=== PATIENT | female | born 1960 | race Caucasian/White ===

== ENCOUNTER → 2017-12-08 14:19 | Outpatient (REF) | payer MEDICAID, SELFPAY ==
[2017-12-08 18:10] LABS: Basophils # 0.1 K/mm3 (0-0.2); Basophils % 0.8 % (0.1-2.0); Eosinophils # 0.4 K/mm3 (0.0-0.4); Eosinophils % 3.4 % (0.1-12.0); Hematocrit 38.4 % (37.0-47.0); Hemoglobin 12.4 g/dL (12.2-16.2); Lymphocytes # 4.8 K/mm3 (0.7-4.5); Lymphocytes % 40.6 K/mm3 (10-50); Mean Corpuscular HGB Conc 32.2 g/dL (31.8-35.4); Mean Corpuscular Hemoglobin 30.2 pg (27.0-31.2); Mean Corpuscular Volume 93.5 fl (81-99); Mean Platelet Volume 9.1 fl (7.4-10.4); Monocytes # 0.9 K/mm3 (0.1-1.0); Monocytes % 7.9 % (1.7-9.3); Neutrophils # 5.6 K/mm3 (1.8-7.8); Neutrophils % 47.4 % (37.0-80.0); Platelet Count 291 K/mm3 (142-424); Red Cell Distribution Width 12.8 % (11.5-17.5); White Blood Count 11.8 K/mm3 (4.8-10.8)
[2017-12-08 18:34] LABS: Hemoglobin A1C 6.3 % (0.0-7.0)
[2017-12-08 18:38] LABS: Alanine Aminotransferase 28 U/L (12-78); Albumin Level 3.7 gm/dL (3.4-5.0); Albumin/Globulin Ratio 1.2 (1.1-1.8); Alkaline Phosphatase 116 U/L (46-116); Anion Gap 13.2 mEq/L (5-15); Aspartate Amino Transferase 15 U/L (15-37); Bilirubin,Total 0.1 mg/dL (0.2-1.0); Blood Urea Nitrogen 15 mg/dL (7-18); Calcium 8.9 mg/dL (8.5-10.1); Carbon Dioxide 28 mmol/L (21.0-32.0); Chloride 104 mmol/L (98-107); Chol/HDL Ratio 4.3 (1-3.5); Cholesterol 260 mg/dL (140-200); Creatinine,Serum 0.86 mg/dL (0.55-1.02); Estimated Glomerular Filt Rate 68 ml/min (>60); Free T4 (Free Thyroxine) 0.82 ng/dl (0.76-1.46); GFR (African American) 82 ML/MIN (>60); Globulin 3.1 gm/dl (1.3-3.2); Glucose 169 mg/dL (74-106); HDL Cholesterol 61 mg/dL (29-89); LDL Cholesterol 161 mg/dL (0-130); Potassium 4.2 mmoL/L (3.5-5.1); Sodium 141 mmol/L (136-145); Thyroid Stimulating Hormone 9.58 uIU/ml (0.358-3.740); Total Protein,Serum 6.8 gm/dL (6.4-8.2); Triglycerides 192 mg/dL (30-200); VLDL Cholesterol 38 mg/dL (0-40)
[2017-12-10 19:04] LABS: Vitamin D 25 Hydroxy 20.5 ng/mL (30.0-100.0)
== END ==
LOC: LAB 14:19
PROVIDERS: Visit Provider Nurse Practitioner Family
DX: E03.9 Hypothyroidism, unspecified (principal); R53.83 Other fatigue; Z79.899 Other long term (current) drug therapy
CPT/HCPCS: 80053; 80061; 82652; 83036; 84439; 84443; 85025

== ENCOUNTER → 2018-02-17 14:52 | Outpatient (CLI) | payer MEDICAID, SELFPAY ==
[2018-02-17 18:10] LABS: Thyroid Stimulating Hormone 2.73 uIU/ml (0.358-3.740)
== END ==
PROVIDERS: Visit Provider Nurse Practitioner Family
DX: E03.9 Hypothyroidism, unspecified (principal)
CPT/HCPCS: 36415; 84443

== ENCOUNTER → 2019-08-08 14:51 | Outpatient (CLI) | payer MEDICAID, SELFPAY ==
--- NOTE | 2019-08-08 14:55 | XR_ITS ---
PROCEDURE: XR FOOT LT MIN 3V CLINICAL INDICATION: pain Pain along the plantar surface COMPARISON: No exams were available for comparison FINDINGS: No fracture or dislocation. No lytic or blastic change. There is normal mineralization. The joint spaces are well-preserved. No significant degenerative/arthritic changes. No erosive changes evident. Other findings:None. IMPRESSION: No acute findings. Dictated by: Nikos Graves MD 08/08/2019 17:53 Electronically signed by Nikos Graves MD in [place] 08/08/2019 17:53
== END ==
PROVIDERS: PCP Nurse Practitioner Family; Visit Provider Nurse Practitioner Family
DX: M79.672 Pain in left foot (principal)
CPT/HCPCS: 73630

== ENCOUNTER → 2020-04-10 08:59 | Outpatient (CLI) | payer MEDICAID, SELFPAY ==
--- NOTE | 2020-04-10 08:59 | FL_ITS ---
PROCEDURE: FL BARIUM SWALLOW CLINICAL INDICATION: dyspagia Dysphagia, choking COMPARISON: No exams were available for comparison TECHNIQUE: In the upright position the patient was observed to swallow barium in both the AP and lateral view. The cervical esophagus was examined under fluoroscopy with images obtained. The patient was then placed prone in the right anterior oblique position and was observed to swallow barium with Valsalva technique . FLUOROSCOPY TIME: 1 minutes and 12 seconds FINDINGS: There was no evidence of aspiration. There was normal peristalsis. No filling defects or mucosal abnormalities. No masses or strictures. IMPRESSION: Negative barium swallow. Dictated by: Nikos Graves MD 04/10/2020 18:12 Electronically signed by Nikos Graves MD in [place] 04/10/2020 18:12
== END ==
PROVIDERS: PCP Physician Assistant; Visit Provider Surgery
DX: R13.10 Dysphagia, unspecified (principal)
CPT/HCPCS: 74220

== ENCOUNTER 2020-04-29 15:42 | Inpatient (IN) | payer MEDICAID, SELFPAY ==
[2020-04-29 15:44] VITALS: BP 120/79; PULSE 101; RESP 16; TEMP 36.9; O2SAT 98; BMI 22.6
--- NOTE | 2020-04-29 16:23 | CT_ITS ---
PROCEDURE: CT ABDOMEN PELVIS W CON CLINICAL INDICATION: abd pain Abdominal pain, generalized abdominal with vomiting COMPARISON: No exams were available for comparison TECHNIQUE: IV Contrast: 75ML OPTIRAY 350 Oral Contrast None Axial images obtained with sagittal and coronal reformats. All CT scans at the facility use one or more dose reduction, viz: automated exposure control, ma/kV adjustment per patient size (including targeted exams where dose is matched to indication, i.e. head), or iterative reconstruction technique. FINDINGS: LOWER THORAX: No acute finding ABDOMEN & PELVIS: Decreased attenuation of the liver consistent with hepatic steatosis with more prominent areas of decreased attenuation in the pericaval region and along the junction of the right and left hepatic lobe area consistent with more severe fatty infiltration. The spleen, adrenal glands have an unremarkable appearance. There is a small 6 mm area of decreased attenuation within the central aspect of the pancreas measuring -24 Hounsfield units and may be due to some invagination of peripancreatic fat within the pancreas. Just lateral to this area of decreased attenuation is another area of decreased density measuring 6 mm with a Hounsfield unit measurement 32. MRI of the pancreas with pancreatic protocol may provide further evaluation. No evidence of pancreatitis. There is mild prominence of the renal pelves on both sides. No ureteral calculi. Urinary bladder is somewhat distended. There is a mild amount of retained colonic feces. No evidence of appendicitis. No evidence of diverticulitis. There are post hysterectomy changes. There is a small umbilical hernia containing fat. There is mild lumbar curvature convex left. There is fusion of the right SI joint. IMPRESSION: 1. Distended urinary bladder with mild bilateral hydronephrosis. 2. Nonspecific low-density lesions of the pancreas. One lesion is fat density in the of the lesion is more soft tissue density. There are adjacent to 1 another each measuring 6 mm. Recommend follow-up MRI with pancreatic protocol with MRCP. 3. Fatty liver 4. Other nonacute findings as described above. Dictated by: Nikos Graves MD 04/30/2020 08:02 Electronically signed by Nikos Graves MD in [place] 04/30/2020 08:02
[2020-04-29 16:25] LABS: Microscopic, Urine URINE MICROSCOPIC (MICROSCOPIC)
[2020-04-29 16:27] LABS: Basophils # 0.1 K/mm3 (0-0.2); Basophils % 0.3 % (0.1-2.0); Eosinophils # 0.1 K/mm3 (0.0-0.4); Eosinophils % 0.3 % (0.1-12.0); Hematocrit 36.2 % (37.0-47.0); Hemoglobin 13.4 g/dL (12.2-16.2); Lymphocytes # 4.4 K/mm3 (0.7-4.5); Lymphocytes % 15.9 % (10-50); Mean Corpuscular Hemoglobin 32.1 pg (27.0-31.2); Mean Corpuscular Volume 86.8 fl (81-99); Mean Platelet Volume 8.3 fl (7.4-10.4); Monocytes # 1.8 K/mm3 (0.1-1.0); Monocytes % 6.5 % (1.7-9.3); Neutrophils # 21.1 K/mm3 (1.8-7.8); Platelet Count 367 K/mm3 (142-424); Red Blood Count 4.17 M/mm3 (4.20-5.40); Red Cell Distribution Width 13.5 % (11.5-17.5); White Blood Count 27.5 K/mm3 (4.8-10.8)
--- NOTE | 2020-04-29 16:31 | CT_ITS ---
PROCEDURE: CT HEAD/BRAIN WO CON CLINICAL INDICATION: ams Altered mental status, altered level of consciousness, confusion, disorientation COMPARISON: No exams were available for comparison TECHNIQUE: Axial images obtained. All CT scans at the facility use one or more dose reduction, viz: automated exposure control, ma/kV adjustment per patient size (including targeted exams where dose is matched to indication, i.e. head), or iterative reconstruction technique. FINDINGS: No midline shift, mass effect, intracranial hemorrhage, hydrocephalus, or extra-axial fluid collection is evident. There is generalized atrophy with hypoattenuation of the periventricular white matter consistent with microangiopathic changes. The calvarium has an unremarkable appearance. No mastoid effusion. No sinus air-fluid level. IMPRESSION: No acute intracranial finding Dictated by: Nikos Graves MD 04/30/2020 07:54 Electronically signed by Nikos Graves MD in [place] 04/30/2020 07:54
[2020-04-29 16:32] LABS: Appearance,Urine CLEAR (Clear); Bilirubin,Urine Negative (Negative); Blood, Urine Negative (Negative); Color,Urine YELLOW (Yellow); Glucose,Urine (UA) Negative (Negative); Ketones,Urine Negative (Negative); Leukocyte Esterase,Urine Negative (Negative); Nitrate,Urine Negative (Negative); Protein,Urine Negative (Negative); Urobilinogen,Urine 0.2 EU/dl (0.2)
[2020-04-29 16:34] LABS: Sodium 116 mmol/L (136-145)
[2020-04-29 16:35] LABS: Potassium 3.5 mmoL/L (3.5-5.1)
[2020-04-29 16:37] LABS: Alanine Aminotransferase 56 U/L (12-78); Alkaline Phosphatase 128 U/L (38-126); Anion Gap 18.5 mEq/L (5-15); Aspartate Amino Transferase 59 U/L (14-36); Bilirubin,Total 0.5 mg/dl (0.2-1.3); Blood Urea Nitrogen 4 mg/dl (7-17); Carbon Dioxide 24 mmol/L (22.0-30.0); Creatinine Clearance Estimated 90 mL/min (50-200); Estimated Glomerular Filt Rate 102 ml/min (>60); GFR (African American) 124 ML/MIN (>60)
[2020-04-29 16:38] LABS: Albumin Level 3.8 g/dl (3.5-5.0); Albumin/Globulin Ratio 1.5 (1.1-1.8); Amylase 38 U/L (30-110); Calcium 9.3 mg/dl (8.4-10.2); Globulin 2.5 g/dL (1.3-3.2); Glucose 149 mg/dl (74-100); Lipase 73 U/L (23-300); Total Protein,Serum 6.3 g/dl (6.3-8.2)
--- NOTE | 2020-04-29 16:42 | HMH.EDGENADL ---
ED Disposition Clinical Impression: Hyponatremia, Urinary retention Dementia Qualifiers: Dementia type: unspecified type Dementia behavioral disturbance: without behavioral disturbance Qualified Code(s): F03.90 - Unspecified dementia without behavioral disturbance Constipation Qualifiers: Constipation type: unspecified constipation type Qualified Code(s): K59.00 - Constipation, unspecified Disposition: Admitted As Inpatient Condition on Discharge: Fair - Critical Care Critical Care Time: No Attestation: On 04/29/20, the high probability of a clinically significant, sudden or life threatening deterioration of the following system(s) required my full and direct attention, intervention and personal management. The time I documented below is in addition to time spent performing reported procedures but includes the following listed in this critical care notation. Medical Decision Making - Medical Records Medical records reviewed: Yes: I reviewed the patient's medical records. - Luis Antonio Inquiry Pt receiving controlled substance: No Vital Signs: 04/29/20 15:44 04/29/20 17:17 Temperature 98.5 F Temperature Source Oral Pulse Rate [Left Radial] 101 H 107 H Respiratory Rate 16 Blood Pressure [Right Arm] 120/79 125/74 Blood Pressure Mean [Right Arm] 92 91 Blood Pressure Position [Right Arm] Sitting 02 Sat by Pulse Oximetry 98 Oxygen Delivery Method Room Air - Lab Data Lab Results 04/29/20 15:44: Urine Color Yellow, Urine Appearance Clear, Urine pH 6.0, Ur Specific [place] 1.010, Urine Protein Negative, Urine Glucose (UA) Negative, Urine Ketones Negative, Urine Blood Negative, Urine Nitrate Negative, Urine Bilirubin Negative, Urine Urobilinogen 0.2, Ur Leukocyte Esterase Negative, Urine WBC Occasional, Ur Squamous Epith Cells Occasional, Urine Bacteria Trace 04/29/20 16:15: Amylase 38, Lipase 73 04/29/20 16:15: WBC 27.5 H*, RBC 4.17 L, Hgb 13.4, Hct 36.2 L, MCV 86.8, MCH 32.1 H, MCHC 37.0 H, RDW 13.5, Plt Count 367, MPV 8.3, Neut % (Auto) 77.0, Lymph % (Auto) 15.9, Luce % (Auto) 6.5, Eos % (Auto) 0.3, Baso % (Auto) 0.3, Neut # (Auto) 21.1 H, Lymph # (Auto) 4.4, Luce # (Auto) 1.8 H, Eos # (Auto) 0.1, Baso # (Auto) 0.1, Total Counted 100, Neutrophils % (Manual) 67, Lymphocytes % (Manual) 19, Monocytes % (Manual) 14 H, Platelet Estimate Normal, RBC Morphology Normal 04/29/20 16:15: Sodium 116 L, Potassium 3.5, Chloride 77 L, Carbon Dioxide 24, Anion Gap 18.5 H, BUN 4 L, Creatinine 0.60, Estimated Creat Clear 90, Estimated GFR 102, Est GFR ( Amer) 124, Glucose 149 H, Calcium 9.3, Total Bilirubin 0.5, AST 59 H, ALT 56, Alkaline Phosphatase 128 H, Total Protein 6.3, Albumin 3.8, Globulin 2.5, Albumin/Globulin Ratio 1.5 04/29/20 16:15: Urine Opiates Screen Negative, Urine Methadone Screen Negative, Ur Barbituates Screen Negative, Ur Phencyclidine Scrn Negative, Ur Amphetamines Screen Negative, U Benzodiazepines Scrn Negative, Urine Cocaine Screen Negative, U Marijuana (THC) Screen Negative 04/29/20 16:15: Plasma/Serum Alcohol < 10 04/29/20 16:15: TSH 4.22 04/29/20 18:05: Urine Creatinine 26 Result diagrams: 04/29/20 16:15 04/29/20 16:15 Orders (Tests/Meds): ED MEDICATIONS Generic Name Dose Route Start Last Admin Trade Name Freq PRN Reason Stop Dose Admin Acetaminophen 650 mg 04/29/20 18:38 Acetaminophen 325mg Tab PO 05/29/20 18:37 Q4HP PRN As Needed for Fever or Pain Atorvastatin Calcium 0 mg 04/29/20 19:00 Lipitor 10mg Tablet PO 05/29/20 18:59 .COMPLEX TONYA Docusate Sodium 100 mg 04/30/20 09:00 Docusate Sodium 100mg Cap PO 05/30/20 08:59 DAILY TONYA Sodium Chloride 1,000 mls @ 150 mls/hr 04/29/20 18:45 Sod Chlor 0.9% 1000ml Bag IV 05/29/20 18:44 .Q6H40M TONYA Ibuprofen 400 mg 04/29/20 18:38 Motrin 400mg Tablet PO 05/29/20 18:37 Q6HP PRN Mild Pain Levothyroxine Sodium 0 mcg 04/29/20 19:00 Synthroid 25mcg (0.025mg) Tablet PO 05/29/20
[2020-04-29 17:10] LABS: Chloride 77 mmol/L (98-107)
[2020-04-29 17:11] LABS: MANUAL DIFFERENTIAL MANUAL DIFFERENTIAL (MANUAL DIFF)
[2020-04-29 17:12] LABS: Bacteria,Urine Trace /lpf; Squamous Epithelial Cell,Urine Occasional #/hpf (0-5); WBC,Urine Occasional #/hpf (0-3)
[2020-04-29 17:13] LABS: Lymphocytes % 19 % (10-50); Monocytes % 14 % (2-9); Neutrophils % 67 % (42-76); Platelet Estimate Normal; RBC Morphology Normal; Total Cells Counted 100
[2020-04-29 17:17] VITALS: BP 125/74; PULSE 107
[2020-04-29 17:18] LABS: Ethyl Alcohol < 10 mg/dl (0-10)
[2020-04-29 17:21] LABS: Barbiturates Screen,Urine Negative ng/ml (<200)
[2020-04-29 17:22] LABS: Amphetamine/Metha Screen,Urine Negative ng/ml (<1000); Benzodiazepines Screen,Urine Negative ng/ml (<200)
[2020-04-29 17:23] LABS: Cannabinoid Screen,Urine Negative ng/ml (<50); Methadone Screen,Urine Negative ng/ml (<300)
[2020-04-29 17:24] LABS: Cocaine Screen,Urine Negative ng/ml (<300)
[2020-04-29 17:25] LABS: Opiate Screen,Urine Negative ng/ml (<300); Phencyclidine Screen,Urine Negative ng/ml (<25)
--- NOTE | 2020-04-29 18:30 | PC.NURSE ---
urine out put 1400cc
[2020-04-29 18:41] LABS: Thyroid Stimulating Hormone 4.22 uIU/mL (0.465-4.68)
[2020-04-29 18:58] LABS: Creatinine,Urine Random 26 mg/dL (Not Estab.)
[2020-04-29 19:30] VITALS: BP 102/76; PULSE 79; RESP 16; TEMP 36.9; O2SAT 100
--- NOTE | 2020-04-29 19:54 | PC.NURSE ---
patient up to floor via wheelchair.
[2020-04-29 20:00] VITALS: BP 115/58; PULSE 101; RESP 18; TEMP 36.7; O2SAT 100; BMI 23.1
[2020-04-29 20:00] LABS: Chloride 87 mmol/L (98-107); Potassium 3.6 mmoL/L (3.5-5.1); Sodium 125 mmol/L (136-145)
[2020-04-29 20:03] LABS: Anion Gap 16.6 mEq/L (5-15); Blood Urea Nitrogen 4 mg/dl (7-17); Calcium 9.2 mg/dl (8.4-10.2); Carbon Dioxide 25 mmol/L (22.0-30.0); Creatinine Clearance Estimated 108 mL/min (50-200); Estimated Glomerular Filt Rate 126 ml/min (>60); GFR (African American) 153 ML/MIN (>60); Glucose 131 mg/dl (74-100)
[2020-04-30 04:00] VITALS: BP 108/64; PULSE 89; RESP 20; TEMP 36.6; O2SAT 99
[2020-04-30 06:43] LABS: Basophils # 0.1 K/mm3 (0-0.2); Basophils % 0.4 % (0.1-2.0); Eosinophils # 0.2 K/mm3 (0.0-0.4); Eosinophils % 1.6 % (0.1-12.0); Hematocrit 34.7 % (37.0-47.0); Hemoglobin 12.3 g/dL (12.2-16.2); Lymphocytes # 4.2 K/mm3 (0.7-4.5); Lymphocytes % 29.1 % (10-50); Mean Corpuscular HGB Conc 35.5 g/dL (31.8-35.4); Mean Corpuscular Hemoglobin 32.1 pg (27.0-31.2); Mean Corpuscular Volume 90.3 fl (81-99); Mean Platelet Volume 8.2 fl (7.4-10.4); Monocytes # 1.3 K/mm3 (0.1-1.0); Monocytes % 9.3 % (1.7-9.3); Neutrophils # 8.5 K/mm3 (1.8-7.8); Neutrophils % 59.5 % (37.0-80.0); Platelet Count 299 K/mm3 (142-424); Red Blood Count 3.85 M/mm3 (4.20-5.40); Red Cell Distribution Width 13.8 % (11.5-17.5); White Blood Count 14.3 K/mm3 (4.8-10.8)
--- NOTE | 2020-04-30 07:10 | HMH.PHAVTE ---
[facility] Pharmacy VTE Monitoring - Patient Demographics Admission date: 04/29/20 Report Date: 04/30/20 Time: 07:10 Allergies/Adverse Reactions: Patient Allergies doxycycline Allergy (Severe, Verified 04/29/20 16:05) Hives phenobarbital Allergy (Severe, Verified 04/29/20 16:05) Hives Height: 1.57 m Weight: 57.153 kg Patient Problems: Current Active Problems (Last Updated 12/14/17 @ 14:16 by CARITO Kim) Hyponatremia (Acute) Constipation (Acute) Urinary retention (Acute) Dementia (Chronic) - VTE Risk Labs: VTE Related Lab Results Hgb 12.3 g/dL (12.2-16.2) 04/30/20 06:18 Hct 34.7 % (37.0-47.0) L 04/30/20 06:18 Plt Count 299 K/mm3 (142-424) 04/30/20 06:18 BUN 4 mg/dl (7-17) L 04/29/20 19:43 Creatinine 0.50 mg/dl (0.52-1.04) L 04/29/20 19:43 Estimated Creat Clear 108 mL/min (50-200) 04/29/20 19:43 VTE Score: 5 VTE Risk Level: Low Risk - Prophylaxis VTE Prophylaxis Ordered?: Yes Types of VTE Prophylaxis: TEDS Knee High Location of Applied Device: Bilateral Lower Extremeties - VTE Diagnosis Confirmed Treatment or plan recommended: Continue Current Treatment
[2020-04-30 07:11] LABS: Chloride 103 mmol/L (98-107)
[2020-04-30 07:12] LABS: Potassium 3.2 mmoL/L (3.5-5.1); Sodium 135 mmol/L (136-145)
[2020-04-30 07:14] LABS: Alanine Aminotransferase 35 U/L (12-78); Alkaline Phosphatase 95 U/L (38-126); Aspartate Amino Transferase 44 U/L (14-36); Bilirubin,Total 0.3 mg/dl (0.2-1.3); Blood Urea Nitrogen 4 mg/dl (7-17); Creatinine Clearance Estimated 109 mL/min (50-200); Estimated Glomerular Filt Rate 126 ml/min (>60); GFR (African American) 153 ML/MIN (>60)
[2020-04-30 07:15] LABS: Albumin Level 2.7 g/dl (3.5-5.0); Albumin/Globulin Ratio 1.2 (1.1-1.8); Anion Gap 7.2 mEq/L (5-15); Calcium 8.5 mg/dl (8.4-10.2); Carbon Dioxide 28 mmol/L (22.0-30.0); Globulin 2.3 g/dL (1.3-3.2); Glucose 115 mg/dl (74-100)
--- NOTE | 2020-04-30 07:24 | HMH.PHAINT ---
MEDICATION RECONCILIATION COMPLETED ON PATIENT USING EXTERNAL FILL HISTORY FROM PHARMACY AND PATIENT INTERVIEW. -SUSAN PHILLIPS, DELBERTD
[2020-04-30 08:00] VITALS: BP 121/72; PULSE 94; RESP 16; TEMP 36.9; O2SAT 100
--- NOTE | 2020-04-30 10:17 | HMH.HP ---
*Admission Date: 04/29/20 *Chief complaint: Nausea/Vomiting *History of present illness: 59-year-old female patient arrived in the ED with per protocol. Patient is a very poor historian, reports patient has not been eating or drinking for 3 days and has had increased episodes of vomiting he also reports his has been complaining of abdominal pain and patient voiced complaint with abdomen palpation. reports that has had very little interest in eating the last few days, she usually has a very good appetite and he denies any hematemesis. Reports has a history of dementia, he reports she has seen a neurologist in the past and is taking memantine and donepezil. He does report more erratic behavior over the last few months such as while eating she will stuff her face with food until she gags. He also reports she has not taken care of herself, forgets to bathe, he does not feel comfortable taking care of her at home any longer (Per ED note). In the ED WBC 27.5 pulse 101 Sirs criteria, sodium was also 125, BUN/creatinine 4/0.5, and UA negative. After IV fluids in ER this morning white blood cell count 14.3, sodium 135, BU and/creatinine 4/0.[address] pelvis CT and head CT performed results below 04/29/20 Abd/Pelvis CT: FINDINGS: LOWER THORAX: No acute finding ABDOMEN & PELVIS: Decreased attenuation of the liver consistent with hepatic steatosis with more prominent areas of decreased attenuation in the pericaval region and along the junction of the right and left hepatic lobe area consistent with more severe fatty infiltration. The spleen, adrenal glands have an unremarkable appearance. There is a small 6 mm area of decreased attenuation within the central aspect of the pancreas measuring -24 Hounsfield units and may be due to some invagination of peripancreatic fat within the pancreas. Just lateral to this area of decreased attenuation is another area of decreased density measuring 6 mm with a Hounsfield unit measurement 32. MRI of the pancreas with pancreatic protocol may provide further evaluation. No evidence of pancreatitis. There is mild prominence of the renal pelves on both sides. No ureteral calculi. Urinary bladder is somewhat distended. There is a mild amount of retained colonic feces. No evidence of appendicitis. No evidence of diverticulitis. There are post hysterectomy changes. There is a small umbilical hernia containing fat. There is mild lumbar curvature convex left. There is fusion of the right SI joint. IMPRESSION: 1. Distended urinary bladder with mild bilateral hydronephrosis. 2. Nonspecific low-density lesions of the pancreas. One lesion is fat density in the of the lesion is more soft tissue density. There are adjacent to 1 another each measuring 6 mm. Recommend follow-up MRI with pancreatic protocol with MRCP. 3. Fatty liver 4. Other nonacute findings as described above. Dictated by: Star, 04/29/20: FINDINGS: No midline shift, mass effect, intracranial hemorrhage, hydrocephalus, or extra-axial fluid collection is evident. There is generalized atrophy with hypoattenuation of the periventricular white matter consistent with microangiopathic changes. The calvarium has an unremarkable appearance. No mastoid effusion. No sinus air-fluid level. IMPRESSION: No acute intracranial finding Dictated by: Star Robert History Medical History: Reports:: Dementia, Gastroesophageal Reflux Disease(GERD), Hyperlipidemia Denies:: Diabetes Mellitus Type 1, Diabetes Mellitus Type 2 *Have you ever received a pneumonia vaccine?: No *Have you received a flu vaccine this season?: No Other Medical History: Reports: Sinus Problems Other Surgeries: Yes: Cholecystectomy, Hysterectomy-Total, Other Amputation: No Fractures: No - *Social History Last grade of school completed: GED Smoking Status: Former smoker Tobacco Type: cigarettes # Pack
[2020-04-30 10:47] VITALS: BMI 23.1
--- NOTE | 2020-04-30 10:58 | SW/DCPLANNER ---
Addendum entered by [facility] 05/05/20 14:51: Alexia has stated they can ACCEPT this patient for today. I have informed patients nurse (Hernando) regarding number to call report. phone #: [phone] ([facility]). Addendum entered by [facility] 05/05/20 13:53: I have made multiple calls to Alexia at [facility]....still awaiting response regarding accepting for today based on COVID screening. I have informed Aleixa that this patient is ready for discharge. Addendum entered by [facility] 05/05/20 08:51: Updated patient information will be faxed to [facility]. I have spoke with Alexia at [facility] and she has stated that once patient information is reviewed she will call back stating whether patient can be accepted today. Patient is ready for discharge today. Addendum entered by [facility] 05/02/20 13:38: Dr Argueta has requested that patient be kept at [facility] over the weekend and discharge to [facility] at the first of next. I have informed Alexia at [facility] and patients . I will follow up with facility on Tuesday morning. Addendum entered by [facility] 05/02/20 11:06: is agreeable to transport this patient once stable for discharge. Addendum entered by [facility] 05/02/20 10:14: Once COVID19 results are back patient can discharge to [facility]. I have spoke with Alexia this morning whom states they are agreeable to accept this patient today. I will speak with patients regarding transportation. Addendum entered by [facility] 05/01/20 13:35: Alexia has requested a nasal swab....this has been ordered. Addendum entered by [facility] 05/01/20 12:56: Alexia has stated that [facility] can accept this patient. Alexia will have to clarify with Administration at [facility] regarding which COVID testing is required. Once Alexia notifies me I will speak with MD regarding COVID order. Addendum entered by [facility] 05/01/20 11:30: Alexia has requested additional patient information at this time: nursing notes, SS notes, vitals, progress notes. Alexia will call me back regarding necessary COVID testing prior to admission. Addendum entered by [facility] 05/01/20 09:58: I spoke with Alexia again this morning and she has stated that they continue to review patient referral. I will continue to follow up with Alexia and family today. Addendum entered by Ana Morales 04/30/20 16:12: Alexia has stated that she will get back with me in AM regarding this referral. I will call and inform patients . Addendum entered by Ana Morales 04/30/20 13:21: [facility]ia with [facility] is currently reviewing patient information. Original Note: I have spoke with patients husbands regarding home situation/discharge plans. Patient is unable to answer questions at this time. Patients was present at time of my visit. was very emotional stating that things have began to decline at home and he is unable to safely care for his at home. has stated that he is interested in placement at this time. After a lengthy discussion with he is open to facilities in [place] and [facility] (also willing to investigate further in [place] if needed). At this time: [facility] and [facility] do NOT have any female/REGLA pending beds available. I have spoke with Adalberto at [facility] and she has stated that they do have beds available. Patient information has been faxed to [facility]. Patient is NOT ready for discharge at this time. I will continue to follow up with MD ani and patients family.
--- NOTE | 2020-04-30 12:33 | XR_ITS ---
PROCEDURE: XR CHEST PORTABLE CLINICAL HISTORY: Cough COMPARISON: No exams were available for comparison FINDINGS: The cardiomediastinal silhouette and pulmonary vascularity are within normal limits. The lungs are clear without infiltrates, suspicious nodules, or pleural effusions. No acute bony abnormalities. IMPRESSION: No acute findings. Dictated by: Nikos Graves MD 04/30/2020 14:33 Electronically signed by Nikos Graves MD in [place] 04/30/2020 14:33
--- NOTE | 2020-04-30 13:24 | MR_ITS ---
PROCEDURE: MR ABDOMEN WO/W CON CLINICAL INDICATION: Abdnormal Abd CT Vomiting COMPARISON: CT ABDOMEN PELVIS W CON from 04/29/2020 TECHNIQUE: Routine multiplanar multi echo sequences are performed without and with gadolinium enhancement. FINDINGS: . motion artifact somewhat obscures fine detail. No focal liver lesions are identified. There is a small cystic lesion within the junction of the body and tail the pancreas corresponding to the area decreased attenuation on the CT scan. This measures 10 x 4 mm and appears to communicate with the pancreatic duct. This does not demonstrate contrast enhancement. No enhancing lesions are evident. The fatty lesion noted on the CT scan demonstrates decreased intensity on the out of phase images consistent with fatty lesion. Probably benign. MRCP images: There has been a prior cholecystectomy. The common bile duct has an unremarkable appearance. No pancreatic ductal dilatation is evident. The small cystic lesion in the tail the pancreas may communicate with the pancreatic duct or lies very near to it. There is a focal area of decreased T2 signal intensity involving the lower pole of the left kidney this measures approximately 9 mm and may be due to a hemorrhagic or proteinaceous cyst. Continued follow-up suggested. IMPRESSION: Small cystic lesion of the tail the pancreas as described above without evidence of enhancement. This may merely represent a simple cyst. And IPMN it would be included in the differential diagnosis. Recommend six-month follow-up to confirm short term stability. This could be performed with CT with pancreatic protocol. Hypointense 9 mm lesion lower pole left kidney which may be due to a proteinaceous/hemorrhagic cyst and can be followed in 6 months along with the pancreas lesion Dictated by: Nikos Graves MD 05/01/2020 07:33 Electronically signed by Nikos Graves MD in [place] 05/01/2020 07:33
[2020-04-30 13:26] LABS: C-Reactive Protein 20.8 mg/L (0-4)
[2020-04-30 13:32] LABS: Erythrocyte Sedimentation Rate 19 mm/hr (0-30)
--- NOTE | 2020-04-30 14:22 | HMH.PTEV ---
Physical Therapy Evaluation Rehab PT IP Evaluation Start: 04/30/20 12:33 Freq: .once Status: Active Protocol: Document 04/30/20 13:57 JEREMIE (Rec: 04/30/20 14:21 JEREMIE [id number]) Subjective/History History History 59-year-old female patient arrived in the ED with per protocol. Patient is a very poor historian, reports patient has not been eating or drinking for 3 days and has had increased episodes of vomiting he also reports his has been complaining of abdominal pain and patient voiced complaint with abdomen palpation. reports that has had very little interest in eating the last few days, she usually has a very good appetite and he denies any hematemesis. Reports has a history of dementia, he reports she has seen a neurologist in the past and is taking memantine and donepezil. He does report more erratic behavior over the last few months such as while eating she will stuff her face with food until she gags. He also reports she has not taken care of herself, forgets to bathe, he does not feel comfortable taking care of her at home any longer Subjective Subjective Pt does not have any c/o - pt very lethargic and slow to attempt response Rehab PT IP Eval Objective Appearance Patient Behavior Sedated,Confused Patient Orientation Person Difficulty following instructions moderate Speech Pattern Delayed,Soft-Spoken Ambulation Patient Able to Ambulate Yes Ambulation Observation IP General Gait Pattern Observation Shuffling Step Ambulation Distance (feet) 10 Ambulation Assistive Device None Ambulation Ability Contact Guard/Hand Hold Balance Ability to Arise Able, uses arms to help Sitting Balance Steady, safe Standing Balance Steady, wide stance Dynamic Sitting Balance Ability Darrell
[2020-04-30 16:00] VITALS: BP 135/75; PULSE 88; RESP 18; TEMP 36.4; O2SAT 97
--- NOTE | 2020-04-30 16:49 | PC.NURSE ---
PT IS OFF THE FLOOR AT THIS TIME FOR MRI. PT HAS BEEN UP IN THE CHAIR MOST OF THE AFTERNOON. NO COMPLAINTS OF DISCOMFORT. THIS MORNING PT WAS ALERT TO NAME AND ONLY. PT WAS UNAWARE OF THE DATE AND DID NOT KNOW SHE WAS IN THE HOSPITAL. PT IS ABLE TO GET OOB WITH STANDBY ASSIST AND ROLLING WALKER. ACCORDING TO PT'S PT ATE A REALLY GOOD BREAKFAST THIS MORNING BUT HE DID HAVE TO FEED HER. PT ATTEMPTED TO EAT HER LUNCH THIS AFTERNOON BUT WHAT LITTLE SHE DID EAT SHE CHEWED UP AND SPIT BACK OUT ON HER PLATE. [employer] [facility] STATED IT WOULD BE OKAY TO LEAVE PT'S CATHETER IN TILL TOMORROW AFTER SHE CONSULTS WITH UROLOGY. LUNG SOUNDS HAVE SCATTERED WHEEZES. ABDOMEN SOFT/NON TENDER WITH NORMAL BOWEL SOUNDS. VSS. WILL CONTINUE TO MONITOR.
[2020-04-30 20:00] VITALS: BP 119/72; PULSE 96; RESP 17; TEMP 36.7; O2SAT 99
[2020-05-01 03:36] VITALS: BP 115/72; PULSE 81; RESP 18; TEMP 36.6; O2SAT 100
[2020-05-01 05:00] VITALS: BMI 23.1
--- NOTE | 2020-05-01 07:43 | PC.NURSE ---
PT RESTED WELL THIS SHIFT WITH EYES CLOSED. NO C/O PAIN. A&O TO SELF. TOLERATED RA WELL WITH NO C/O SOA. DENIES ABDOMINAL PAIN T/O SHIFT. NO ABDOMINAL TENDERNESS NOTED UPON PALPATION. ADEQUATE URINE OUTPUT NOTED. URINE NOTED CLEAR AND BRIGHT YELLOW. DENIES N/V/D. NO BOWEL MOVEMENT NOTED THIS SHIFT. NPO SINCE 0000 FOR UNIQUE CONSULT THIS AM. AMB WELL WITH ASSIST X1 IN ROOM. VSS. REMAINS SAFE WITH BED ALARM ON AND FUNCTIONING. AT BEDSIDE THIS SHIFT. CALL LIGHT WITHIN REACH. WILL CONTINUE TO MONITOR.
[2020-05-01 08:00] VITALS: BP 140/67; PULSE 63; RESP 16; TEMP 36.6; O2SAT 94
[2020-05-01 08:05] LABS: Basophils # 0.1 K/mm3 (0-0.2); Basophils % 0.4 % (0.1-2.0); Eosinophils # 0.4 K/mm3 (0.0-0.4); Eosinophils % 2.4 % (0.1-12.0); Hematocrit 34.8 % (37.0-47.0); Lymphocytes # 2.8 K/mm3 (0.7-4.5); Lymphocytes % 16.9 % (10-50); Mean Corpuscular HGB Conc 34.5 g/dL (31.8-35.4); Mean Corpuscular Hemoglobin 31.6 pg (27.0-31.2); Mean Corpuscular Volume 91.6 fl (81-99); Mean Platelet Volume 7.6 fl (7.4-10.4); Monocytes # 1.2 K/mm3 (0.1-1.0); Monocytes % 7.2 % (1.7-9.3); Neutrophils # 12.2 K/mm3 (1.8-7.8); Neutrophils % 73.1 % (37.0-80.0); Platelet Count 333 K/mm3 (142-424); White Blood Count 16.6 K/mm3 (4.8-10.8)
[2020-05-01 08:06] LABS: Chloride 106 mmol/L (98-107); Sodium 137 mmol/L (136-145)
[2020-05-01 08:09] LABS: Alanine Aminotransferase 32 U/L (12-78); Alkaline Phosphatase 106 U/L (38-126); Aspartate Amino Transferase 51 U/L (14-36); Bilirubin,Total 0.4 mg/dl (0.2-1.3); Blood Urea Nitrogen 2 mg/dl (7-17); Creatinine Clearance Estimated 109 mL/min (50-200); Estimated Glomerular Filt Rate 126 ml/min (>60); GFR (African American) 153 ML/MIN (>60)
[2020-05-01 08:10] LABS: Albumin Level 2.8 g/dl (3.5-5.0); Albumin/Globulin Ratio 1.2 (1.1-1.8); Anion Gap 3.6 mEq/L (5-15); Calcium 7.9 mg/dl (8.4-10.2); Carbon Dioxide 30 mmol/L (22.0-30.0); Globulin 2.4 g/dL (1.3-3.2); Glucose 142 mg/dl (74-100); Total Protein,Serum 5.2 g/dl (6.3-8.2)
[2020-05-01 08:12] LABS: MANUAL DIFFERENTIAL MANUAL DIFFERENTIAL (MANUAL DIFF)
[2020-05-01 08:13] LABS: Potassium 2.6 mmoL/L (3.5-5.1)
--- NOTE | 2020-05-01 08:16 | PC.NURSE ---
PT IS RESTING IN BED. DURING MORNING ASSESSMENT PT WAS ALERT TO NAME AND . WHEN PT IS ASKED WHERE SHE IS SHE STATES [facility] NO COMPLAINTS OF DISCOMFORT. CRITICAL POTASSIUM OF 2.6 WAS REPORTED. WILL CONTINUE TO MONITOR.
[2020-05-01 08:43] LABS: Eosinophils % 3 % (0-3); Lymphocytes % 17 % (10-50); Monocytes % 3 % (2-9); Neutrophils % 76 % (42-76); Platelet Estimate Normal; RBC Morphology Normal; Total Cells Counted 100
--- NOTE | 2020-05-01 09:11 | HMH.ACPN2 ---
Internal Medicine - PN: Subj *Date: 05/01/20 *Time: :20 Interval history: The same he is getting IV fluid at 150. She has a low potassium. She has an indwelling Gabriel, placed for urinary retention. We have plans for a urology consult. The urinalysis was fairly unremarkable. She was initially admitted with an elevated white count of 27.5, this has been slowly declining. He is status post hysterectomy. Her chest x-ray is clear. CT of the abdomen is as below. ABDOMEN & PELVIS: Decreased attenuation of the liver consistent with hepatic steatosis with more prominent areas of decreased attenuation in the pericaval region and along the junction of the right and left hepatic lobe area consistent with more severe fatty infiltration. The spleen, adrenal glands have an unremarkable appearance. There is a small 6 mm area of decreased attenuation within the central aspect of the pancreas measuring -24 Hounsfield units and may be due to some invagination of peripancreatic fat within the pancreas. Just lateral to this area of decreased attenuation is another area of decreased density measuring 6 mm with a Hounsfield unit measurement 32. MRI of the pancreas with pancreatic protocol may provide further evaluation. No evidence of pancreatitis. There is mild prominence of the renal pelves on both sides. No ureteral calculi. Urinary bladder is somewhat distended. There is a mild amount of retained colonic feces. No evidence of appendicitis. No evidence of diverticulitis. There are post hysterectomy changes. There is a small umbilical hernia containing fat. There is mild lumbar curvature convex left. There is fusion of the right SI joint. IMPRESSION: 1. Distended urinary bladder with mild bilateral hydronephrosis. 2. Nonspecific low-density lesions of the pancreas. One lesion is fat density in the of the lesion is more soft tissue density. There are adjacent to 1 another each measuring 6 mm. Recommend follow-up MRI with pancreatic protocol with MRCP. 3. Fatty liver 4. Other nonacute findings as described above. There is no obvious source of the elevated white count. She is hypokalemic at 2.6. CT the brain showed no acute findings. She is comfortable this morning, no acute distress. Exam Vital signs and Labs for Last 24 Hours: Temp Pulse Resp BP Pulse Ox 97.9 F 81 18 115/72 100 05/01/20 03:36 05/01/20 03:36 05/01/20 03:36 05/01/20 03:36 05/01/20 03:36 Laboratory Results - last 24 hr 04/30/20 13:05: ESR 19 04/30/20 13:05: C-Reactive Protein 20.8 H 05/01/20 07:45: WBC 16.6 H, RBC 3.80 L, Hgb 12.0 L, Hct 34.8 L, MCV 91.6, MCH 31.6 H, MCHC 34.5, RDW 14.0, Plt Count 333, MPV 7.6, Neut % (Auto) 73.1, Lymph % (Auto) 16.9, [place] % (Auto) 7.2, Eos % (Auto) 2.4, Baso % (Auto) 0.4, Neut # (Auto) 12.2 H, Lymph # (Auto) 2.8, [place] # (Auto) 1.2 H, Eos # (Auto) 0.4, Baso # (Auto) 0.1, Total Counted 100, Neutrophils % (Manual) 76, Band Neutrophils % 1.0, Lymphocytes % (Manual) 17, Monocytes % (Manual) 3, Eosinophils % (Manual) 3, Platelet Estimate Normal, RBC Morphology Normal 05/01/20 07:45: Sodium 137, Potassium 2.6 L*, Chloride 106, Carbon Dioxide 30, Anion Gap 3.6 L, BUN 2 L D, Creatinine 0.50 L, Estimated Creat Clear 109, Estimated GFR 126, Est GFR ( Amer) 153, Glucose 142 H, Calcium 7.9 L, Total Bilirubin 0.4, AST 51 H, ALT 32, Alkaline Phosphatase 106, Total Protein 5.2 L, Albumin 2.8 L, Globulin 2.4, Albumin/Globulin Ratio 1.2 I & O for Last 24 hours: Intake & Output 04/28/20 04/29/20 04/30/20 05/01/20 23:59 23:59 23:59 23:59 Intake Total 3135 / 3135 1614 / 1614 Output Total 3025 / 4325 1500 / 1500 Balance 110 / -1190 114 / 114 Weight 126 lb 125 lb 10.616 oz 126 lb 1 oz - Constitutional no acute distress, chronically ill appearing - *Routine HEENT Exam Eye: Absent: scleral injection, periorbital swelling ENT: Present: mucous membranes moist - *Routi
--- NOTE | 2020-05-01 09:51 | HMH.OTEV ---
OT Inpatient Evaluation Rehab OT IP Evaluation Start: 04/30/20 12:34 Freq: ONCE Status: Complete Protocol: Document 05/01/20 09:42 ABIMAEL (Rec: 05/01/20 09:51 [facility] [place] [id number] Rehab OT IP Assessment Subjective History Pt oriented to person on arrival. Pt is a 59 year old female admitted via ED on due to nausea and vomitting for a few days. Pt has a past medical history of dementia, GERD, and hyperlipidemia. Pt is a poor historian and not able to provide any information about previous level of function. Pt reports she does not have a . However, pt's history reports explain she lives with who is the main caregiver. Subjective I don't know where I live. Objective Patient Orientation Person Upper Extremity Gross ROM WFL Bed Mobility bed mobility-scooting,bed mobility - supine/sit,bed mobility - rolling Assist Level Contact Guard/Hand Hold Transfer Training Sit/Stand Transfer Assist Level Contact Guard/Hand Hold Rehab OT IP prob,goals,plan Problems Date of Evaluation: 05/01/20 OT IP Problems Bed Mobility,Transfers,Gait, Balance,Self care,Safety Rehab Potential Rehab Potential Good Equipment Needs Assistive Devices Rolling / Wheeled Walker Plan OT intervention Plan Bed Mobility,Transfers,Gait, Balance,Self care,Safety, Therapeutic Exercise OT Plan Frequency Daily Duration LOS Discharge Goals Bed Mobility Ability Standby Assistance Sit to Stand Chair Transfer Ability Supervision/Stand by Chair Transfer Ability Supervision/Stand by Chair Transfer Technique Sit to/from Ambulatory Chair Transfer Assistive Devices Rolling Walker Self care skills fully toilet trained,dressing/ undressing independently,uses utensils to feed self Bathing Ability Assistance x1 Performing Toilet Hygiene Ability Standby Assistance Overall Commode/Toilet Transfer Ability Standby Assistance Commode/Toilet Transfer Technique Sit to/from Ambulatory Discharge Plan OT Discharge Plan
[2020-05-01 11:16] LABS: Sodium, Urine <20 mmol/L (Not Estab.)
--- NOTE | 2020-05-01 15:12 | HMH.CONS ---
*Admission Date: 04/29/20 *Reason for consult:: Urinary retention *History of present illness: 59-year-old white female with dementia presented to the emergency room with the decreased oral intake and vomiting. She was found to be hyponatremic and CT scan of the abdomen pelvis showed bladder distention and mild bilateral hydro-. She also had a large stool burden consistent with constipation. Gabriel catheter currently in place. Her renal function was normal at 0.5 and her white count was slightly elevated at 14.3 on admission. These are improved. Her urinalysis was within normal limits on admission. [facility] History Medical History: Reports:: Dementia, Gastroesophageal Reflux Disease(GERD), Hyperlipidemia Denies:: Diabetes Mellitus Type 1, Diabetes Mellitus Type 2 *Have you ever received a pneumonia vaccine?: No *Have you received a flu vaccine this season?: No Other Medical History: Reports: Sinus Problems Other Surgeries: Yes: Cholecystectomy, Hysterectomy-Total, Other Amputation: No Fractures: No - *Social History Last grade of school completed: GED Smoking Status: Former smoker Tobacco Type: cigarettes # Packs/Day (cigarettes): 1 Alcohol Intake: never Alcohol Intake Frequency:: a few times a month Substance Use Type: denies use *Occupational Status:: retired Housing: other Household Members: spouse *Travel in the last 8 weeks: None Family Hx:: Coronary Artery Disease, Diabetes, Heart Attack, Hyperlipidemia, Hypertension, Kidney Disease, Thyroid Disorder Review of Systems - Review of Systems Review of systems:: unable to obtain - *Neurologic Reports weakness, Denies abnormal walking, Denies abnormal speech, Denies headache(s) Meds Home Medications Medication Instructions Recorded Confirmed Type Atorvastatin Calcium [Lipitor 10mg 10 mg PO DAILY 04/29/20 04/30/20 History Tab] Levothyroxine Sodium [Synthroid 25 mcg PO DAILY 04/29/20 04/30/20 History 25mcg (0.025mg) tablet] Pantoprazole Sodium [Protonix] 40 mg PO DAILY 04/29/20 04/29/20 History Memantine HCl/Donepezil HCl 1 cap PO DAILY 04/30/20 04/30/20 History [Namzaric 28 mg-10 mg Capsule] Ziprasidone HCl [Geodon] 80 mg PO BID 04/30/20 04/30/20 History Allergies Allergy/AdvReac Type Severity Reaction Status Date / Time doxycycline Allergy Severe Hives Verified 04/29/20 16:05 phenobarbital Allergy Severe Hives Verified 04/29/20 16:05 Exam Vital signs and Labs for Last 24 Hours: Temp Pulse Resp BP Pulse Ox 97.9 F 63 16 140/67 94 L 05/01/20 08:00 05/01/20 08:00 05/01/20 08:00 05/01/20 08:00 05/01/20 08:00 Laboratory Results - last 24 hr 04/29/20 16:15: Cortisol 27.4 04/29/20 18:05: Urine Sodium <20 05/01/20 07:45: WBC 16.6 H, RBC 3.80 L, Hgb 12.0 L, Hct 34.8 L, MCV 91.6, MCH 31.6 H, MCHC 34.5, RDW 14.0, Plt Count 333, MPV 7.6, Neut % (Auto) 73.1, Lymph % (Auto) 16.9, [place] % (Auto) 7.2, Eos % (Auto) 2.4, Baso % (Auto) 0.4, Neut # (Auto) 12.2 H, Lymph # (Auto) 2.8, [place] # (Auto) 1.2 H, Eos # (Auto) 0.4, Baso # (Auto) 0.1, Total Counted 100, Neutrophils % (Manual) 76, Band Neutrophils % 1.0, Lymphocytes % (Manual) 17, Monocytes % (Manual) 3, Eosinophils % (Manual) 3, Platelet Estimate Normal, RBC Morphology Normal 05/01/20 07:45: Sodium 137, Potassium 2.6 L*, Chloride 106, Carbon Dioxide 30, Anion Gap 3.6 L, BUN 2 L D, Creatinine 0.50 L, Estimated Creat Clear 109, Estimated GFR 126, Est GFR ( Amer) 153, Glucose 142 H, Calcium 7.9 L, Total Bilirubin 0.4, AST 51 H, ALT 32, Alkaline Phosphatase 106, Total Protein 5.2 L, Albumin 2.8 L, Globulin 2.4, Albumin/Globulin Ratio 1.2 I & O for Last 24 hours: Intake & Output 04/28/20 04/29/20 04/30/20 05/01/20 23:59 23:59 23:59 23:59 Intake Total 3135 / 3135 1734 / 1734 Output Total 3025 / 4325 1500 / 1500 Balance 110 / -1190 234 / 234 Weight 57.153 kg 57 kg 57.181 kg Narrative: Well-nourished white female no apparent distress Pupils equal round react light Hi
[2020-05-01 15:34] LABS: Chloride 106 mmol/L (98-107)
[2020-05-01 15:35] LABS: Potassium 3.1 mmoL/L (3.5-5.1); Sodium 139 mmol/L (136-145)
[2020-05-01 15:37] LABS: Blood Urea Nitrogen 3 mg/dl (7-17); Creatinine Clearance Estimated 109 mL/min (50-200); Estimated Glomerular Filt Rate 126 ml/min (>60); GFR (African American) 153 ML/MIN (>60)
[2020-05-01 15:38] LABS: Anion Gap 6.1 mEq/L (5-15); Carbon Dioxide 30 mmol/L (22.0-30.0)
[2020-05-01 15:39] VITALS: BP 136/85; PULSE 87; RESP 20; TEMP 36.7; O2SAT 100
[2020-05-01 15:44] LABS: Glucose 147 mg/dl (74-100)
[2020-05-01 15:45] LABS: Calcium 8.2 mg/dl (8.4-10.2)
--- NOTE | 2020-05-01 16:12 | PC.NURSE ---
PT IS RESTING IN BED. WAS UP IN THE CHAIR FOR SEVERAL HOURS THIS SHIFT. ALERT TO NAME AND ONLY. PT STILL DOES NOT KNOW WHERE SHE IS. STATED OVER THE PHONE THAT PT'S MEMORY HAS CONTINUED TO GET WORSE. WHEN PT WAS ASKED TODAY WHAT HER HUSBANDS NAME WAS SHE STATED I'M NOT PT HAS BEEN SLEEPING ON AND OFF T/O THE DAY. EATING AND DRINKING FAIR. CAME TO CONSULT ON PT THIS SHIFT AND HE STATED HE WOULD LIKE TO DO A BLADDER SCAN TOMORROW AFTER BREE IS DC'D. LUNG SOUNDS CLEAR. BOWEL SOUNDS NORMAL. VSS. WILL CONTINUE TO MONITOR.
[2020-05-01 20:00] VITALS: BP 130/75; PULSE 89; RESP 20; TEMP 36.7; O2SAT 99
[2020-05-02 04:00] VITALS: BP 110/64; PULSE 88; RESP 16; TEMP 36.7; O2SAT 99
--- NOTE | 2020-05-02 04:36 | PC.NURSE ---
PT ABLE TO TELL ME HER NAME AND BIRTHDAY THIS SHIFT. PT ALSO KNEW HER WHEN HE CAME IN TONIGHT. PT REMAINED CALM AND DIDN'T TALK OUT OF HER HEAD MUCH WITH AT BEDSIDE. PT HAS HAD NO C/O PAIN, NA/VO/ OR SOA THIS SHIFT. PT HAS HAD APPETITE. PT GOT UP AND WALKED AROUND ROOM WITH STANDBY ASSIST X1 THIS SHIFT. TOLERATED WELL. F/C PRESENT DRAINING LIGHT YELLOW URINE. PT HAS HAD ADEQUATE U/O THIS SHIFT. PT HAS RESTED IN BED WITH EYES CLOSED T/O MAJORITY OF SHIFT. NO COMPLAINTS THUS FAR, VSS WILL CONTINUE TO MONITOR.
[2020-05-02 05:00] VITALS: BMI 23.3
[2020-05-02 08:00] VITALS: BP 147/85; PULSE 95; RESP 16; TEMP 36.6; O2SAT 99
[2020-05-02 08:23] LABS: Chloride 105 mmol/L (98-107); Sodium 138 mmol/L (136-145)
[2020-05-02 08:24] LABS: Basophils # 0.1 K/mm3 (0-0.2); Basophils % 0.5 % (0.1-2.0); Eosinophils # 0.5 K/mm3 (0.0-0.4); Eosinophils % 2.9 % (0.1-12.0); Hematocrit 32.9 % (37.0-47.0); Hemoglobin 11.7 g/dL (12.2-16.2); Lymphocytes # 3.4 K/mm3 (0.7-4.5); Mean Corpuscular HGB Conc 35.4 g/dL (31.8-35.4); Mean Corpuscular Hemoglobin 31.5 pg (27.0-31.2); Mean Platelet Volume 7.8 fl (7.4-10.4); Monocytes # 1.2 K/mm3 (0.1-1.0); Monocytes % 6.5 % (1.7-9.3); Neutrophils # 12.8 K/mm3 (1.8-7.8); Neutrophils % 71.1 % (37.0-80.0); Platelet Count 329 K/mm3 (142-424); Red Cell Distribution Width 14.3 % (11.5-17.5)
[2020-05-02 08:26] LABS: Anion Gap 5.9 mEq/L (5-15); Blood Urea Nitrogen 2 mg/dl (7-17); Calcium 7.9 mg/dl (8.4-10.2); Carbon Dioxide 30 mmol/L (22.0-30.0); Creatinine Clearance Estimated 110 mL/min (50-200); Estimated Glomerular Filt Rate 126 ml/min (>60); GFR (African American) 153 ML/MIN (>60); Glucose 124 mg/dl (74-100)
[2020-05-02 08:30] LABS: MANUAL DIFFERENTIAL MANUAL DIFFERENTIAL (MANUAL DIFF)
[2020-05-02 08:33] LABS: Potassium 2.9 mmoL/L (3.5-5.1)
[2020-05-02 08:46] LABS: Eosinophils % 5 % (0-3); Lymphocytes % 27 % (10-50); Monocytes % 1 % (2-9); Neutrophils % 67 % (42-76); Total Cells Counted 100
[2020-05-02 08:48] LABS: Platelet Estimate Normal; RBC Morphology Normal
--- NOTE | 2020-05-02 13:07 | HMH.DCSUM ---
General - General Admission date:: 04/29/20 Discharge date: 05/05/20 HPI HPI: 59-year-old female patient arrived in the ED with per protocol. Patient is a very poor historian, reports patient has not been eating or drinking for 3 days and has had increased episodes of vomiting he also reports his has been complaining of abdominal pain and patient voiced complaint with abdomen palpation. reports that has had very little interest in eating the last few days, she usually has a very good appetite and he denies any hematemesis. Reports has a history of dementia, he reports she has seen a neurologist in the past and is taking memantine and donepezil. He does report more erratic behavior over the last few months such as while eating she will stuff her face with food until she gags. He also reports she has not taken care of herself, forgets to bathe, he does not feel comfortable taking care of her at home any longer (Per ED note). In the ED WBC 27.5 pulse 101 Sirs criteria, sodium was also 125, BUN/creatinine 4/0.5, and UA negative. After IV fluids in ER this morning white blood cell count 14.3, sodium 135, BU and/creatinine 4/0.5 again. Abdomen and pelvis CT and head CT performed results below 04/29/20 Abd/Pelvis CT: FINDINGS: LOWER THORAX: No acute finding ABDOMEN & PELVIS: Decreased attenuation of the liver consistent with hepatic steatosis with more prominent areas of decreased attenuation in the pericaval region and along the junction of the right and left hepatic lobe area consistent with more severe fatty infiltration. The spleen, adrenal glands have an unremarkable appearance. There is a small 6 mm area of decreased attenuation within the central aspect of the pancreas measuring -24 Hounsfield units and may be due to some invagination of peripancreatic fat within the pancreas. Just lateral to this area of decreased attenuation is another area of decreased density measuring 6 mm with a Hounsfield unit measurement 32. MRI of the pancreas with pancreatic protocol may provide further evaluation. No evidence of pancreatitis. There is mild prominence of the renal pelves on both sides. No ureteral calculi. Urinary bladder is somewhat distended. There is a mild amount of retained colonic feces. No evidence of appendicitis. No evidence of diverticulitis. There are post hysterectomy changes. There is a small umbilical hernia containing fat. There is mild lumbar curvature convex left. There is fusion of the right SI joint. IMPRESSION: 1. Distended urinary bladder with mild bilateral hydronephrosis. 2. Nonspecific low-density lesions of the pancreas. One lesion is fat density in the of the lesion is more soft tissue density. There are adjacent to 1 another each measuring 6 mm. Recommend follow-up MRI with pancreatic protocol with MRCP. 3. Fatty liver 4. Other nonacute findings as described above. Dictated by: Star, 04/29/20: FINDINGS: No midline shift, mass effect, intracranial hemorrhage, hydrocephalus, or extra-axial fluid collection is evident. There is generalized atrophy with hypoattenuation of the periventricular white matter consistent with microangiopathic changes. The calvarium has an unremarkable appearance. No mastoid effusion. No sinus air-fluid level. IMPRESSION: No acute intracranial finding Dictated by: Star, Hospital Course Hospital Course: pt has did well during the [facility] admit - pt was seen by [id number]-sm[age]-old white female with dementia presented to the emergency room with the decreased oral intake and vomiting. She was found to be hyponatremic and CT scan of the abdomen pelvis showed bladder distention and mild bilateral hydro-. She also had a large stool burden consistent with constipation. Gabriel catheter currently in place. Her renal function was normal at 0.5 and her white count was slightly elevated at 14.3 on
[2020-05-02 13:45] LABS: Covid-19 Nasal PCR Sendout Lex NOT DETECTED
--- NOTE | 2020-05-02 13:47 | CT_ITS ---
PROCEDURE: CT CHEST WO CON CLINICAL INDICATION: evaluate for aspiration Cough COMPARISON: CT ABDOMEN PELVIS W CON from 04/29/2020 TECHNIQUE: Axial images obtained with sagittal and coronal reformats. All CT scans at the facility use one or more dose reduction, viz: automated exposure control, ma/kV adjustment per patient size (including targeted exams where dose is matched to indication, i.e. head), or iterative reconstruction technique. FINDINGS: HEART AND MEDIASTINAL STRUCTURES: Coronary artery calcifications are noted. The heart size is normal. LUNGS AND PLEURAL SPACES: There are trace bilateral effusions. No lobar consolidation or collapse is evident. BONY STRUCTURES: No acute bony abnormalities apparent. UPPER ABDOMEN: There is mild nonspecific thickening of the esophagus. Fatty liver infiltration is noted. There are small Eri portal lymph nodes ADDITIONAL FINDINGS: No other significant abnormalities. IMPRESSION: 1. Trace bilateral effusions. 2. Fatty liver Dictated by: Nikos Graves MD 05/02/2020 17:02 Electronically signed by Nikos Graves MD in [place] 05/02/2020 17:02
--- NOTE | 2020-05-02 14:17 | HMH.CONFU ---
Internal Medicine - PN: Subj *Date: 05/02/20 *Time: 14:17 Interval history: Patient is 59-year-old white female with recent urinary retention and history of dementia. CT scan was remarkable for bladder distention and a mild bilateral hydro-. CT also showed some significant constipation and her mental status was altered when she came in beyond baseline. Her Gabriel catheter was removed this morning and after an incontinent episode a bladder scan was performed showing a residual of 214. Discussed with the nurse that this is acceptable. Exam Vital signs and Labs for Last 24 Hours: Temp Pulse Resp BP Pulse Ox 97.8 F 95 H 16 147/85 H 99 05/02/20 08:00 05/02/20 08:00 05/02/20 08:00 05/02/20 08:00 05/02/20 08:00 Laboratory Results - last 24 hr 05/01/20 13:35: SARS-CoV-2 (PCR) Not detected 05/01/20 15:13: Sodium 139, Potassium 3.1 L, Chloride 106, Carbon Dioxide 30, Anion Gap 6.1, BUN 3 L D, Creatinine 0.50 L, Estimated Creat Clear 109, Estimated GFR 126, Est GFR ( Amer) 153, Glucose 147 H, Calcium 8.2 L 05/02/20 08:11: WBC 18.0 H, RBC 3.70 L, Hgb 11.7 L, Hct 32.9 L, MCV 89.0, MCH 31.5 H, MCHC 35.4, RDW 14.3, Plt Count 329, MPV 7.8, Neut % (Auto) 71.1, Lymph % (Auto) 19.0, [place] % (Auto) 6.5, Eos % (Auto) 2.9, Baso % (Auto) 0.5, Neut # (Auto) 12.8 H, Lymph # (Auto) 3.4, [place] # (Auto) 1.2 H, Eos # (Auto) 0.5 H, Baso # (Auto) 0.1, Total Counted 100, Neutrophils % (Manual) 67, Lymphocytes % (Manual) 27, Monocytes % (Manual) 1 L, Eosinophils % (Manual) 5 H, Platelet Estimate Normal, RBC Morphology Normal 05/02/20 08:11: Sodium 138, Potassium 2.9 L*, Chloride 105, Carbon Dioxide 30, Anion Gap 5.9, BUN 2 L D, Creatinine 0.50 L, Estimated Creat Clear 110, Estimated GFR 126, Est GFR ( Amer) 153, Glucose 124 H, Calcium 7.9 L I & O for Last 24 hours: Intake & Output 04/29/20 04/30/20 05/01/20 05/02/20 23:59 23:59 23:59 23:59 Intake Total 3135 / 3135 2729 / 2729 2258 / 2258 Output Total 3025 / 4325 3600 / 3600 2300 / 2300 Balance 110 / -1190 -871 / -871 -42 / -42 Weight 57.153 kg 57 kg 57.181 kg 57.663 kg Assessment and Plan (1) SIRS (systemic inflammatory response syndrome) Current visit: Yes Status: Acute Category: Medical Code(s): R65.10 - Systemic inflammatory response syndrome (SIRS) of non-infectious origin without acute organ dysfunction (2) Hyponatremia Current visit: Yes Status: Acute Category: Medical Code(s): E87.1 - Hypo-osmolality and hyponatremia (3) Urinary retention Current visit: Yes Status: Acute Category: Medical Code(s): R33.9 - Retention of urine, unspecified Patient with dementia and recent urinary retention and constipation. It may be that the alteration in mental status and constipation contributed to the urinary retention. Bladder scan today is 214 cc which is acceptable. May be discharged home when medically able I will see her back in a couple weeks in follow-up. (4) Dementia Current visit: Yes Status: Chronic Qualifiers: Dementia type: unspecified type Dementia behavioral disturbance: without behavioral disturbance Qualified Code(s): F03.90 - Unspecified dementia without behavioral disturbance Category: Medical Code(s): F03.90 - Unspecified dementia without behavioral disturbance (5) Hypothyroidism Current visit: No Status: Chronic Qualifiers: Hypothyroidism type: unspecified Qualified Code(s): E03.9 - Hypothyroidism, unspecified Category: Medical Code(s): E03.9 - Hypothyroidism, unspecified
[2020-05-02 16:00] VITALS: BP 144/87; PULSE 85; RESP 19; TEMP 36.8; O2SAT 97
--- NOTE | 2020-05-02 17:00 | PC.NURSE ---
PT IS ALERT AND ORIENTED TO SELF. PT HAS SLEPT MAJORITY OF SHIFT. WHEN AWAKE, PT IS CONFUSED AND SLOW TO RESPOND/DELAYED REACTION. UNABLE TO OBTAIN URINE SAMPLE D/T INCONTINENCE. URINE IS DARK YELLOW AND STRONG FOUL SMELLING. APPETITE IS FAIR. NO BM THIS SHIFT. VSS. NO DISTRESS NOTED. SAFETY MEASURES IN PLACE, WILL CONTINUE TO MONITOR
[2020-05-02 17:10] LABS: Chloride 106 mmol/L (98-107); Potassium 3.5 mmoL/L (3.5-5.1); Sodium 138 mmol/L (136-145)
[2020-05-02 17:13] LABS: Alanine Aminotransferase 27 U/L (12-78); Albumin Level 2.9 g/dl (3.5-5.0); Albumin/Globulin Ratio 1.2 (1.1-1.8); Alkaline Phosphatase 101 U/L (38-126); Anion Gap 6.5 mEq/L (5-15); Aspartate Amino Transferase 36 U/L (14-36); Bilirubin,Total 0.3 mg/dl (0.2-1.3); Blood Urea Nitrogen 3 mg/dl (7-17); Calcium 8.3 mg/dl (8.4-10.2); Carbon Dioxide 29 mmol/L (22.0-30.0); Creatinine Clearance Estimated 110 mL/min (50-200); Estimated Glomerular Filt Rate 126 ml/min (>60); GFR (African American) 153 ML/MIN (>60); Globulin 2.5 g/dL (1.3-3.2); Glucose 132 mg/dl (74-100); Total Protein,Serum 5.4 g/dl (6.3-8.2)
--- NOTE | 2020-05-02 18:17 | HMH.ACPN2 ---
Internal Medicine - PN: Subj *Date: 05/02/20 *Time: 18:19 Interval history: Patient is actively being followed by urology. Patient is 59-year-old white female with recent urinary retention and history of dementia. CT scan was remarkable for bladder distention and a mild bilateral hydro-. CT also showed some significant constipation and her mental status was altered when she came in beyond baseline. Her Gabriel catheter was removed this morning and after an incontinent episode a bladder scan was performed showing a residual of 214. Discussed with the nurse that this is acceptable. Labs today show a declining white count from 27,000-18,000. She was hypokalemic, and received a run of potassium. We are continuing to look for the etiology of her WBC elevation. She was noted to have some difficulty swallowing when she was this morning, which raised the possibility of an aspiration. CT of the chest was done, this showed no infiltration. Fatty liver was noted incidentally. Repeat potassium is improved. Exam Vital signs and Labs for Last 24 Hours: Temp Pulse Resp BP Pulse Ox 98.3 F 85 19 144/87 H 97 05/02/20 16:00 05/02/20 16:00 05/02/20 16:00 05/02/20 16:00 05/02/20 16:00 Laboratory Results - last 24 hr 05/01/20 13:35: SARS-CoV-2 (PCR) Not detected 05/02/20 08:11: WBC 18.0 H, RBC 3.70 L, Hgb 11.7 L, Hct 32.9 L, MCV 89.0, MCH 31.5 H, MCHC 35.4, RDW 14.3, Plt Count 329, MPV 7.8, Neut % (Auto) 71.1, Lymph % (Auto) 19.0, [place] % (Auto) 6.5, Eos % (Auto) 2.9, Baso % (Auto) 0.5, Neut # (Auto) 12.8 H, Lymph # (Auto) 3.4, [place] # (Auto) 1.2 H, Eos # (Auto) 0.5 H, Baso # (Auto) 0.1, Total Counted 100, Neutrophils % (Manual) 67, Lymphocytes % (Manual) 27, Monocytes % (Manual) 1 L, Eosinophils % (Manual) 5 H, Platelet Estimate Normal, RBC Morphology Normal 05/02/20 08:11: Sodium 138, Potassium 2.9 L*, Chloride 105, Carbon Dioxide 30, Anion Gap 5.9, BUN 2 L D, Creatinine 0.50 L, Estimated Creat Clear 110, Estimated GFR 126, Est GFR ( Amer) 153, Glucose 124 H, Calcium 7.9 L 05/02/20 16:58: Sodium 138, Potassium 3.5 D, Chloride 106, Carbon Dioxide 29, Anion Gap 6.5, BUN 3 L D, Creatinine 0.50 L, Estimated Creat Clear 110, Estimated GFR 126, Est GFR ( Amer) 153, Glucose 132 H, Calcium 8.3 L, Total Bilirubin 0.3, AST 36 D, ALT 27, Alkaline Phosphatase 101, Total Protein 5.4 L, Albumin 2.9 L, Globulin 2.5, Albumin/Globulin Ratio 1.2 I & O for Last 24 hours: Intake & Output 04/29/20 04/30/20 05/01/20 05/02/20 23:59 23:59 23:59 23:59 Intake Total 3135 / 3135 2729 / 2729 2378 / 2378 Output Total 3025 / 4325 3600 / 3600 2300 / 2300 Balance 110 / -1190 -871 / -871 78 / 78 Weight 126 lb 125 lb 10.616 oz 126 lb 1 oz 127 lb 2 oz - Constitutional no acute distress, chronically ill appearing - *Routine HEENT Exam Head: Present: normocephalic Eye: Absent: conjunctival icterus ENT: Present: mucous membranes moist - *Routine Neck Exam Present: supple. Absent: tracheal deviation - *Routine Respiratory Exam Present: rhonchi (Few rhonchi heard anteriorly, right greater than left.). Absent: accessory muscle use, prolonged expiratory phase - *Routine Cardiovascular Exam Present: RRR, Normal S1, Normal S2 - *Routine Abdominal Exam Present: soft, normoactive bowel sounds, obese. Absent: tenderness, distended, rebound, guarding, organomegaly - *Routine Extremities Exam Present: edema (Mild edema), JESU stockings. Absent: cyanosis, clubbing - *Routine Skin Exam Present: intact. Absent: cyanosis, jaundice - *Routine Neurological Exam Present: alert, oriented X3 - Routine Psychiatric Exam Present: normal affect Assessment and Plan (1) SIRS (systemic inflammatory response syndrome) Current visit: Yes Status: Acute Category: Medical Code(s): R65.10 - Systemic inflammatory response syndrome (SIRS) of non-infectious origin without acute organ dysfunction (2) Hyponatremia Current visit: Yes Status: A
[2020-05-02 19:47] VITALS: BP 152/92; PULSE 83; RESP 20; TEMP 36.8; O2SAT 98
[2020-05-02 20:00] VITALS: O2SAT 98
[2020-05-03 04:27] VITALS: BP 119/77; PULSE 66; RESP 18; TEMP 36.8; O2SAT 100
[2020-05-03 05:00] VITALS: BMI 23.0
--- NOTE | 2020-05-03 06:07 | PC.NURSE ---
No acute changes. Pt alert to self only at times. No complaints this shift. Pt is incontinent of urine. Pericare provided as needed by staff. New IV access to right AC.
[2020-05-03 07:11] LABS: Basophils # 0.1 K/mm3 (0-0.2); Basophils % 0.4 % (0.1-2.0); Eosinophils # 0.7 K/mm3 (0.0-0.4); Eosinophils % 4.5 % (0.1-12.0); Hemoglobin 11.6 g/dL (12.2-16.2); Lymphocytes # 3.1 K/mm3 (0.7-4.5); Lymphocytes % 18.9 % (10-50); Mean Corpuscular Hemoglobin 31.5 pg (27.0-31.2); Mean Corpuscular Volume 92.6 fl (81-99); Mean Platelet Volume 7.7 fl (7.4-10.4); Monocytes # 1.2 K/mm3 (0.1-1.0); Monocytes % 7.1 % (1.7-9.3); Neutrophils # 11.4 K/mm3 (1.8-7.8); Neutrophils % 69.2 % (37.0-80.0); Platelet Count 341 K/mm3 (142-424); Red Blood Count 3.68 M/mm3 (4.20-5.40); Red Cell Distribution Width 14.1 % (11.5-17.5); White Blood Count 16.5 K/mm3 (4.8-10.8)
[2020-05-03 07:12] LABS: Chloride 105 mmol/L (98-107); Sodium 139 mmol/L (136-145)
[2020-05-03 07:13] LABS: Potassium 3.4 mmoL/L (3.5-5.1)
[2020-05-03 07:15] LABS: Alanine Aminotransferase 25 U/L (12-78); Albumin Level 2.9 g/dl (3.5-5.0); Albumin/Globulin Ratio 1.2 (1.1-1.8); Alkaline Phosphatase 94 U/L (38-126); Aspartate Amino Transferase 34 U/L (14-36); Bilirubin,Total 0.4 mg/dl (0.2-1.3); Blood Urea Nitrogen 3 mg/dl (7-17); Creatinine Clearance Estimated 109 mL/min (50-200); Estimated Glomerular Filt Rate 126 ml/min (>60); GFR (African American) 153 ML/MIN (>60); Globulin 2.4 g/dL (1.3-3.2); Total Protein,Serum 5.3 g/dl (6.3-8.2)
[2020-05-03 07:16] LABS: Anion Gap 6.4 mEq/L (5-15); Calcium 8.2 mg/dl (8.4-10.2); Carbon Dioxide 31 mmol/L (22.0-30.0); Glucose 105 mg/dl (74-100); MANUAL DIFFERENTIAL MANUAL DIFFERENTIAL (MANUAL DIFF)
[2020-05-03 07:59] LABS: Eosinophils % 2 % (0-3); Lymphocytes % 21 % (10-50); Monocytes % 3 % (2-9); Neutrophils % 74 % (42-76); Platelet Estimate Normal; RBC Morphology Normal; Total Cells Counted 100
[2020-05-03 08:00] VITALS: BP 153/81; PULSE 87; RESP 17; TEMP 37.1; O2SAT 95
--- NOTE | 2020-05-03 08:35 | HMH.ACPN2 ---
Internal Medicine - PN: Subj *Date: 05/03/20 *Time: 21:04 Interval history: pt with no specific c/o- still with wbc elevated cultures pending Exam Vital signs and Labs for Last 24 Hours: Temp Pulse Resp BP Pulse Ox 98.7 F 87 17 153/81 H 95 05/03/20 08:00 05/03/20 08:00 05/03/20 08:00 05/03/20 08:00 05/03/20 08:00 Laboratory Results - last 24 hr 05/01/20 13:35: SARS-CoV-2 (PCR) Not detected 05/02/20 08:11: Total Counted 100, Neutrophils % (Manual) 67, Lymphocytes % (Manual) 27, Monocytes % (Manual) 1 L, Eosinophils % (Manual) 5 H, Platelet Estimate Normal, RBC Morphology Normal 05/02/20 16:58: Sodium 138, Potassium 3.5 D, Chloride 106, Carbon Dioxide 29, Anion Gap 6.5, BUN 3 L D, Creatinine 0.50 L, Estimated Creat Clear 110, Estimated GFR 126, Est GFR ( Amer) 153, Glucose 132 H, Calcium 8.3 L, Total Bilirubin 0.3, AST 36 D, ALT 27, Alkaline Phosphatase 101, Total Protein 5.4 L, Albumin 2.9 L, Globulin 2.5, Albumin/Globulin Ratio 1.2 05/03/20 06:30: WBC 16.5 H, RBC 3.68 L, Hgb 11.6 L, Hct 34.0 L, MCV 92.6, MCH 31.5 H, MCHC 34.0, RDW 14.1, Plt Count 341, MPV 7.7, Neut % (Auto) 69.2, Lymph % (Auto) 18.9, [place] % (Auto) 7.1, Eos % (Auto) 4.5, Baso % (Auto) 0.4, Neut # (Auto) 11.4 H, Lymph # (Auto) 3.1, [place] # (Auto) 1.2 H, Eos # (Auto) 0.7 H, Baso # (Auto) 0.1, Total Counted 100, Neutrophils % (Manual) 74, Lymphocytes % (Manual) 21, Monocytes % (Manual) 3, Eosinophils % (Manual) 2, Platelet Estimate Normal, RBC Morphology Normal 05/03/20 06:30: Sodium 139, Potassium 3.4 L, Chloride 105, Carbon Dioxide 31 H, Anion Gap 6.4, BUN 3 L, Creatinine 0.50 L, Estimated Creat Clear 109, Estimated GFR 126, Est GFR ( Amer) 153, Glucose 105 H D, Calcium 8.2 L, Total Bilirubin 0.4, AST 34, ALT 25, Alkaline Phosphatase 94, Total Protein 5.3 L, Albumin 2.9 L, Globulin 2.4, Albumin/Globulin Ratio 1.2 I & O for Last 24 hours: Intake & Output 04/30/20 05/01/20 05/02/20 05/03/20 11:59 11:59 11:59 11:59 Intake Total 1138 / 1138 3611 / 3611 3373 / 3373 1032 / 1032 Output Total 1725 / 1725 2800 / 2800 4400 / 4400 Balance -587 / -587 811 / 811 -1027 / -1027 1032 / 1032 Weight 125 lb 10.616 oz 126 lb 1 oz 127 lb 2 oz 125 lb 2 oz - Constitutional no acute distress - *Routine HEENT Exam Head: Present: normocephalic Eye: Present: EOMI, PERRL ENT: Present: mucous membranes dry - *Routine Neck Exam Absent: JVD - *Routine Respiratory Exam Present: CTA bilaterally - *Routine Cardiovascular Exam Present: RRR, murmur - *Routine Abdominal Exam Present: soft - *Routine Extremities Exam Absent: calf tenderness - *Routine Skin Exam Present: intact - *Routine Neurological Exam Present: alert, oriented X3, CN II-XII intact - Routine Psychiatric Exam Present: normal affect Assessment and Plan (1) SIRS (systemic inflammatory response syndrome) Current visit: Yes Status: Acute Category: Medical Code(s): R65.10 - Systemic inflammatory response syndrome (SIRS) of non-infectious origin without acute organ dysfunction (2) Hyponatremia Current visit: Yes Status: Acute Category: Medical Code(s): E87.1 - Hypo-osmolality and hyponatremia (3) Urinary retention Current visit: Yes Status: Acute Category: Medical Code(s): R33.9 - Retention of urine, unspecified (4) Dementia Current visit: Yes Status: Chronic Qualifiers: Dementia type: unspecified type Dementia behavioral disturbance: without behavioral disturbance Qualified Code(s): F03.90 - Unspecified dementia without behavioral disturbance Category: Medical Code(s): F03.90 - Unspecified dementia without behavioral disturbance (5) Hypothyroidism Current visit: No Status: Chronic Qualifiers: Hypothyroidism type: unspecified Qualified Code(s): E03.9 - Hypothyroidism, unspecified Category: Medical Code(s): E03.9 - Hypothyroidism, unspecified (6) UTI (urinary tract infection) Current visit: Yes Status: Ac
[2020-05-03 11:59] LABS: Microscopic, Urine URINE MICROSCOPIC (MICROSCOPIC)
[2020-05-03 12:05] LABS: Appearance,Urine CLEAR (Clear); Bilirubin,Urine Negative (Negative); Blood, Urine Negative (Negative); Color,Urine YELLOW (Yellow); Glucose,Urine (UA) Negative (Negative); Ketones,Urine Negative (Negative); Leukocyte Esterase,Urine 2+ (Negative); Nitrate,Urine Negative (Negative); Protein,Urine Negative (Negative); Urobilinogen,Urine 0.2 EU/dl (0.2)
[2020-05-03 12:10] LABS: RBC,Urine Occasional #/hpf (0-3)
[2020-05-03 12:11] LABS: Bacteria,Urine Trace /lpf; Other Crystals,Urine 2+ /lpf
[2020-05-03 16:00] VITALS: BP 147/84; PULSE 92; RESP 17; TEMP 36.9; O2SAT 97
--- NOTE | 2020-05-03 18:12 | PC.NURSE ---
PT IS ALERT, SHE REFUSED TO TELL ME HER NAME OR WHERE SHE IS, OH, I KNOW WHERE THIS IS GOING. PT'S BEHAVIOR IS BIZARRE AND PT TALKS TO HERSELF FREQUENTLY. SLOW TO RESPOND AND HAS DIFFICULTIES FOLLOWING BASIC INSTRUCTIONS. PURWICK IN PLACE. APPETITE IS FAIR. PT DENIES PAIN. NO COMPLAINTS VOICED. A SECOND URINE SAMPLE SENT TO THE LAB TODAY BECAUSE THEY MISPLACED THE FIRST SAMPLE. VSS. SAFETY MEASURES IN PLACE, WILL CONTINUE TO MONITOR
[2020-05-03 19:48] VITALS: BP 132/90; PULSE 88; RESP 16; TEMP 36.8; O2SAT 95
[2020-05-03 20:00] VITALS: O2SAT 95
[2020-05-04 03:59] VITALS: BP 166/88; PULSE 64; RESP 17; TEMP 36.5; O2SAT 100
--- NOTE | 2020-05-04 04:16 | PC.NURSE ---
Pt slept majority of shift. Pt remains baseline orientation to self. She repositions independently in bed. Purwick in place draining concentrated urine. No complaints reported to staff. TEDS removed to assess skin, no sign of breakdown, TEDS reapplied.
[2020-05-04 05:00] VITALS: BMI 23.0
[2020-05-04 08:00] VITALS: BP 124/49; PULSE 70; RESP 18; TEMP 37.1; O2SAT 98
--- NOTE | 2020-05-04 08:26 | HMH.ACPN2 ---
Internal Medicine - PN: Subj *Date: 05/04/20 *Time: 08:26 Interval history: pt more confused today- labs pending - Exam Vital signs and Labs for Last 24 Hours: Temp Pulse Resp BP Pulse Ox 97.7 F 64 17 166/88 H 100 05/04/20 03:59 05/04/20 03:59 05/04/20 03:59 05/04/20 03:59 05/04/20 03:59 Laboratory Results - last 24 hr 05/03/20 11:53: Urine Color Yellow, Urine Appearance Clear, Urine pH 7.0, Ur Specific [place] 1.020, Urine Protein Negative, Urine Glucose (UA) Negative, Urine Ketones Negative, Urine Blood Negative, Urine Nitrate Negative, Urine Bilirubin Negative, Urine Urobilinogen 0.2, Ur Leukocyte Esterase 2+ A, Urine RBC Occasional, Urine WBC 10-20, Ur Squamous Epith Cells 3-5, Other Crystals 2+, Urine Bacteria Trace I & O for Last 24 hours: Intake & Output 05/01/20 05/02/20 05/03/20 05/04/20 11:59 11:59 11:59 11:59 Intake Total 3611 / 3611 3373 / 3373 1272 / 1272 3378 / 3378 Output Total 2800 / 2800 4400 / 4400 1900 / 1900 Balance 811 / 811 -1027 / -1027 1272 / 1272 1478 / 1478 Weight 126 lb 1 oz 127 lb 2 oz 125 lb 2 oz 125 lb 4 oz Microbiology Reports for the Last 24 Hours: Microbiology 05/03/20 11:53 Urine,Clean Catch Urine Culture - Preliminary - Constitutional no acute distress - *Routine HEENT Exam Head: Present: normocephalic Eye: Present: EOMI, PERRL ENT: Present: mucous membranes dry - *Routine Neck Exam Present: supple - *Routine Respiratory Exam Present: CTA bilaterally - *Routine Cardiovascular Exam Present: RRR, murmur - *Routine Abdominal Exam Present: soft - *Routine Extremities Exam Absent: calf tenderness - *Routine Skin Exam Present: intact - *Routine Neurological Exam Present: alert, CN II-XII intact - Routine Psychiatric Exam Absent: good insight Comments: confused at times Assessment and Plan (1) SIRS (systemic inflammatory response syndrome) Current visit: Yes Status: Acute Category: Medical Code(s): R65.10 - Systemic inflammatory response syndrome (SIRS) of non-infectious origin without acute organ dysfunction (2) Hyponatremia Current visit: Yes Status: Acute Category: Medical Code(s): E87.1 - Hypo-osmolality and hyponatremia (3) Urinary retention Current visit: Yes Status: Acute Category: Medical Code(s): R33.9 - Retention of urine, unspecified (4) Dementia Current visit: Yes Status: Chronic Qualifiers: Dementia type: unspecified type Dementia behavioral disturbance: without behavioral disturbance Qualified Code(s): F03.90 - Unspecified dementia without behavioral disturbance Category: Medical Code(s): F03.90 - Unspecified dementia without behavioral disturbance (5) Hypothyroidism Current visit: No Status: Chronic Qualifiers: Hypothyroidism type: unspecified Qualified Code(s): E03.9 - Hypothyroidism, unspecified Category: Medical Code(s): E03.9 - Hypothyroidism, unspecified (6) UTI (urinary tract infection) Current visit: Yes Status: Acute Qualifiers: Urinary tract infection type: site unspecified Hematuria presence: without hematuria Qualified Code(s): N39.0 - Urinary tract infection, site not specified Category: Medical Code(s): N39.0 - Urinary tract infection, site not specified (7) Hypokalemia Current visit: Yes Status: Acute Category: Medical Code(s): E87.6 - Hypokalemia 7 (Pending blood and urine culture.)
[2020-05-04 08:45] LABS: Basophils # 0.1 K/mm3 (0-0.2); Basophils % 0.6 % (0.1-2.0); Eosinophils # 0.9 K/mm3 (0.0-0.4); Eosinophils % 6.1 % (0.1-12.0); Hematocrit 33.7 % (37.0-47.0); Hemoglobin 11.7 g/dL (12.2-16.2); Lymphocytes # 2.6 K/mm3 (0.7-4.5); Lymphocytes % 18.6 % (10-50); Mean Corpuscular HGB Conc 34.7 g/dL (31.8-35.4); Mean Corpuscular Hemoglobin 31.6 pg (27.0-31.2); Mean Corpuscular Volume 91.1 fl (81-99); Mean Platelet Volume 7.5 fl (7.4-10.4); Monocytes # 0.9 K/mm3 (0.1-1.0); Monocytes % 6.5 % (1.7-9.3); Neutrophils # 9.7 K/mm3 (1.8-7.8); Neutrophils % 68.3 % (37.0-80.0); Platelet Count 349 K/mm3 (142-424); Red Cell Distribution Width 14.4 % (11.5-17.5); White Blood Count 14.2 K/mm3 (4.8-10.8)
[2020-05-04 08:52] LABS: Chloride 107 mmol/L (98-107)
[2020-05-04 08:53] LABS: Potassium 3.6 mmoL/L (3.5-5.1); Sodium 139 mmol/L (136-145)
[2020-05-04 08:56] LABS: Anion Gap 8.6 mEq/L (5-15); Blood Urea Nitrogen 6 mg/dl (7-17); Calcium 8.5 mg/dl (8.4-10.2); Carbon Dioxide 27 mmol/L (22.0-30.0); Creatinine Clearance Estimated 109 mL/min (50-200); Estimated Glomerular Filt Rate 126 ml/min (>60); GFR (African American) 153 ML/MIN (>60); Glucose 133 mg/dl (74-100)
[2020-05-04 16:00] VITALS: BP 150/100; PULSE 98; RESP 16; TEMP 36.6; O2SAT 100
--- NOTE | 2020-05-04 17:51 | PC.NURSE ---
PT IS SITTING UP IN THE CHAIR EATING DINNER. NO COMPLAINTS OF DISCOMFORT. PT SEEMS MORE CONFUSED THIS SHIFT. EATING AND DRINKING WELL. PURWICK IN PLACE. VSS. WILL CONTINUE TO MONITOR.
[2020-05-04 19:36] VITALS: BP 146/82; PULSE 95; RESP 18; TEMP 36.6; O2SAT 99
[2020-05-04 20:00] VITALS: O2SAT 99
[2020-05-05 04:00] VITALS: BP 117/68; PULSE 72; RESP 16; TEMP 37.2; O2SAT 100
[2020-05-05 05:00] VITALS: BMI 23.1
--- NOTE | 2020-05-05 05:53 | PC.NURSE ---
No acute changes this shift. Pt voiding via purwick, clear yellow urine. Pt remains baseline orientation to self only. Pt was noted to be pocketing her medication in her mouth. This RN was able to get her to take them w/ pudding. Will pass along in report to oncoming RN.
[2020-05-05 06:20] LABS: Basophils # 0.1 K/mm3 (0-0.2); Basophils % 0.5 % (0.1-2.0); Eosinophils # 0.9 K/mm3 (0.0-0.4); Eosinophils % 6.5 % (0.1-12.0); Hematocrit 34.7 % (37.0-47.0); Hemoglobin 11.7 g/dL (12.2-16.2); Lymphocytes # 3.7 K/mm3 (0.7-4.5); Mean Corpuscular HGB Conc 33.8 g/dL (31.8-35.4); Mean Corpuscular Volume 94.6 fl (81-99); Mean Platelet Volume 7.5 fl (7.4-10.4); Monocytes # 1.1 K/mm3 (0.1-1.0); Monocytes % 7.6 % (1.7-9.3); Neutrophils # 8.5 K/mm3 (1.8-7.8); Neutrophils % 59.5 % (37.0-80.0); Platelet Count 339 K/mm3 (142-424); Red Blood Count 3.67 M/mm3 (4.20-5.40); Red Cell Distribution Width 14.6 % (11.5-17.5); White Blood Count 14.3 K/mm3 (4.8-10.8)
[2020-05-05 06:34] LABS: Chloride 106 mmol/L (98-107); Potassium 3.3 mmoL/L (3.5-5.1); Sodium 140 mmol/L (136-145)
[2020-05-05 06:37] LABS: Blood Urea Nitrogen 3 mg/dl (7-17); Creatinine Clearance Estimated 109 mL/min (50-200); Estimated Glomerular Filt Rate 126 ml/min (>60); GFR (African American) 153 ML/MIN (>60)
[2020-05-05 06:38] LABS: Anion Gap 6.3 mEq/L (5-15); Calcium 8.9 mg/dl (8.4-10.2); Carbon Dioxide 31 mmol/L (22.0-30.0); Glucose 118 mg/dl (74-100)
[2020-05-05 08:00] VITALS: BP 158/82; PULSE 93; RESP 24; TEMP 36.9; O2SAT 99
--- NOTE | 2020-05-05 08:24 | HMH.ACPN ---
Internal Medicine - PN: Subj *Date: 05/05/20 *Time: 08:24 Exam Vital signs and Labs for Last 24 Hours: Temp Pulse Resp BP Pulse Ox 98.9 F 72 16 117/68 100 05/05/20 04:00 05/05/20 04:00 05/05/20 04:00 05/05/20 04:00 05/05/20 04:00 Laboratory Results - last 24 hr 05/04/20 08:20: WBC 14.2 H, RBC 3.70 L, Hgb 11.7 L, Hct 33.7 L, MCV 91.1, MCH 31.6 H, MCHC 34.7, RDW 14.4, Plt Count 349, MPV 7.5, Neut % (Auto) 68.3, Lymph % (Auto) 18.6, [place] % (Auto) 6.5, Eos % (Auto) 6.1, Baso % (Auto) 0.6, Neut # (Auto) 9.7 H, Lymph # (Auto) 2.6, [place] # (Auto) 0.9, Eos # (Auto) 0.9 H, Baso # (Auto) 0.1 05/04/20 08:20: Sodium 139, Potassium 3.6, Chloride 107, Carbon Dioxide 27, Anion Gap 8.6, BUN 6 L D, Creatinine 0.50 L, Estimated Creat Clear 109, Estimated GFR 126, Est GFR ( Amer) 153, Glucose 133 H, Calcium 8.5 05/05/20 06:04: WBC 14.3 H, RBC 3.67 L, Hgb 11.7 L, Hct 34.7 L, MCV 94.6, MCH 32.0 H, MCHC 33.8, RDW 14.6, Plt Count 339, MPV 7.5, Neut % (Auto) 59.5, Lymph % (Auto) 26.0, [place] % (Auto) 7.6, Eos % (Auto) 6.5, Baso % (Auto) 0.5, Neut # (Auto) 8.5 H, Lymph # (Auto) 3.7, [place] # (Auto) 1.1 H, Eos # (Auto) 0.9 H, Baso # (Auto) 0.1 05/05/20 06:04: Sodium 140, Potassium 3.3 L, Chloride 106, Carbon Dioxide 31 H, Anion Gap 6.3, BUN 3 L D, Creatinine 0.50 L, Estimated Creat Clear 109, Estimated GFR 126, Est GFR ( Amer) 153, Glucose 118 H, Calcium 8.9 I & O for Last 24 hours: Intake & Output 05/02/20 05/03/20 05/04/20 05/05/20 23:59 23:59 23:59 23:59 Intake Total 2378 / 2378 3212 / 3212 2861 / 2861 1651 / 1651 Output Total 2300 / 2300 700 / 700 2700 / 3000 800 / 800 Balance 78 / 78 2512 / 2512 161 / -139 851 / 851 Weight 57.663 kg 56.756 kg 56.812 kg 56.897 kg Microbiology Reports for the Last 24 Hours: Microbiology 05/03/20 11:53 Urine,Clean Catch Urine Culture - Final Multiple organisms, suggests contamination. 05/02/20 14:10 Blood Blood Culture - Preliminary NO GROWTH AFTER 48 HOURS 05/02/20 14:10 Blood Blood Culture - Preliminary NO GROWTH AFTER 48 HOURS Assessment and Plan (1) SIRS (systemic inflammatory response syndrome) Current visit: Yes Status: Acute Category: Medical Code(s): R65.10 - Systemic inflammatory response syndrome (SIRS) of non-infectious origin without acute organ dysfunction (2) Hyponatremia Current visit: Yes Status: Acute Category: Medical Code(s): E87.1 - Hypo-osmolality and hyponatremia (3) Urinary retention Current visit: Yes Status: Acute Category: Medical Code(s): R33.9 - Retention of urine, unspecified (4) Dementia Current visit: Yes Status: Chronic Qualifiers: Dementia type: unspecified type Dementia behavioral disturbance: without behavioral disturbance Qualified Code(s): F03.90 - Unspecified dementia without behavioral disturbance Category: Medical Code(s): F03.90 - Unspecified dementia without behavioral disturbance (5) Hypothyroidism Current visit: No Status: Chronic Qualifiers: Hypothyroidism type: unspecified Qualified Code(s): E03.9 - Hypothyroidism, unspecified Category: Medical Code(s): E03.9 - Hypothyroidism, unspecified (6) UTI (urinary tract infection) Current visit: Yes Status: Acute Qualifiers: Urinary tract infection type: site unspecified Hematuria presence: without hematuria Qualified Code(s): N39.0 - Urinary tract infection, site not specified Category: Medical Code(s): N39.0 - Urinary tract infection, site not specified (7) Hypokalemia Current visit: Yes Status: Acute Category: Medical Code(s): E87.6 - Hypokalemia The patient's infection will respond to the chosen ABx?: Yes Is the patient receiving the right drug, dose, and route?: Yes Could a more targeted ABx be ordered?: No (CULTURES STILL PENDING) 7 (Pending blood and urine culture.)
[2020-05-05 21:28] LABS: Peripheral Smear Review Scanned Result
== END 2020-05-05 15:38 | DRG 641 ==
LOC: ER 17:55 → 2ND 18:59
PROVIDERS: Family Medicine; Nurse Practitioner Family; Admitting Provider Internal Medicine Adolescent Medicine; Emergency Provider Emergency Medicine; PCP Emergency Medicine; Visit Provider Emergency Medicine
DX: E87.1 Hypo-osmolality and hyponatremia (principal); F03.91 Unspecified dementia, unspecified severity, with behavioral disturbance; R65.10 Systemic inflammatory response syndrome (SIRS) of non-infectious origin without acute organ dysfunction; R33.9 Retention of urine, unspecified; E03.9 Hypothyroidism, unspecified; Z87.891 Personal history of nicotine dependence; E78.5 Hyperlipidemia, unspecified; Z88.8 Allergy status to other drugs, medicaments and biological substances; Z79.899 Other long term (current) drug therapy; K59.00 Constipation, unspecified
CPT/HCPCS: 36415; 70450; 71045; 71250; 74177; 74183; 76376; 80048; 80053; 80305; 81001; 82150; 82533; 82570; 83690; 84300; 84443; 85007; 85025; 85651; 86140; 87040; 87086; 93005; 96365; 97110; 97162; 97166; 97530; 99285; A9576; Q9967; U0004